=== PATIENT | male | born 1980 | race Hispanic/Latino ===

== ENCOUNTER 2017-04-10 18:57 | Emergency (ER) | payer MEDICAID, OTHER ==
[2017-04-10 19:03] VITALS: BP 132/94; PULSE 100; RESP 18; TEMP 98; O2SAT 99
[2017-04-10 19:57] LABS: EOS # 0.1 K/uL (0.0-0.7); EOS % 1.4 % (0.0-4.0); LYMPH # 1.6 K/uL (1.0-4.3); MONO # 0.8 K/uL (0.0-0.8); MONO % 10.3 % (0.0-10.0); RED CELL DISTRIBUTION WIDTH 13.6 % (11.5-14.5)
[2017-04-10 20:01] LABS: ALB/GLOB RATIO 1.3 (1.0-2.1); ALCOHOL SERUM 97 mg/dl (0-10); ALKALINE PHOSPHATASE 76 U/L (38-126); ALT/SGPT 105 U/L (21-72); AST/SGOT 70 U/L (17-59); BLOOD UREA NITROGEN 9 mg/dl (9-20); CALCIUM 10.3 mg/dL (8.4-10.2); CARBON DIOXIDE 23 mmol/L (22-30); CHLORIDE 109 mmol/L (98-107); GFR AFRICAN-AMERICAN > 60; GLUCOSE,RANDOM 104 mg/dL (75-110); POTASSIUM 3.7 MMOL/L (3.6-5.0); SODIUM 146 mmol/l (132-148); TOTAL PROTEIN 7.5 G/DL (6.3-8.2)
[2017-04-10 20:04] LABS: BASO % 0.6 % (0.0-2.0); HEMATOCRIT 40.9 % (35.0-51.0); LYMPH % 20.3 % (20.0-40.0); MEAN CELL VOLUME 91.2 fl (80.0-94.0); MEAN CORPUSCULAR HEMOGLOBIN 30.4 pg (27.0-31.0); MEAN CORPUSCULAR HGB CONC 33.3 g/dL (33.0-37.0); MEAN PLATELET VOLUME 6.9 fl (7.2-11.7); NEUT # 5.2 K/uL (1.8-7.0); NEUT % 67.4 % (50.0-75.0); NRBC % 0.1 % (0.0-0.0); WHITE BLOOD COUNT 7.8 K/uL (4.8-10.8)
--- NOTE | 2017-04-10 21:42 | ED PDOC ---
HPI: Psych/Substance Abuse Time Seen by Provider: 04/10/17 19:16 Chief Complaint (Nursing): Psychiatric Evaluation Chief Complaint (Provider): Psychiatric Evaluation History Per: Patient History/Exam Limitations: no limitations Onset/Duration Of Symptoms: Days (x4) Current Symptoms Are (Timing): Still Present Additional Complaint(s): Kimo Mayberry is a 36 year old male with previous medical history of substance abuse, who presents to the emergency department requesting detox or psychiatric treatment for his anxiety status post signing himself out of detox program 4 days ago. Denied auditory hallucination, homicidal or suicidal ideation. Patient stated he abused alcohol and Xanax pills earlier prior to arrival. PMD: none provided Past Medical History Reviewed: Historical Data, Nursing Documentation, Vital Signs Vital Signs: Last Vital Signs Temp 98.0 F 04/10/17 18:59 Pulse 100 H 04/10/17 18:59 Resp 18 04/10/17 18:59 BP 132/94 H 04/10/17 18:59 Pulse Ox 99 04/10/17 18:59 - Surgical History Surgical History: No Surg Hx - Family History Family History: States: Unknown Family Hx - Social History Current smoker - smoking cessation education provided: Yes Alcohol: > 2 Drinks/Day Drugs: Cocaine, Prescription medications (xanax), Other (PCP) - Immunization History Hx Tetanus Toxoid Vaccination: Yes Hx Influenza Vaccination: No Hx Pneumococcal Vaccination: No - Home Medications Home Medications: Ambulatory Orders Medication Instructions Recorded No Known Home Med 10/02/16 - Allergies Allergies/Adverse Reactions: Allergies Allergy/AdvReac Type Severity Reaction Status Date / Time No Known Allergies Allergy Verified 10/02/16 23:41 Review of Systems ROS Statement: Except As Marked, All Systems Reviewed And Found Negative Psych: Negative for: Suicidal ideation (homicidal ideation), Other (auditory hallucinations) Physical Exam - Reviewed Nursing Documentation Reviewed: Yes Vital Signs Reviewed: Yes - Physical Exam Appears: Positive for: Well (but poorly groomed), Non-toxic, No Acute Distress Head Exam: Positive for: ATRAUMATIC, NORMAL INSPECTION, NORMOCEPHALIC Cardiovascular/Chest: Positive for: Regular Rate, Rhythm. Negative for: Chest Non Tender Respiratory: Positive for: Normal Breath Sounds. Negative for: Respiratory Distress Gastrointestinal/Abdominal: Positive for: Normal Exam, Bowel Sounds, Soft. 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 Provider Scribe Attestation: All medical record entries made by the Scribe were at my direction and personally dictated by me. I have reviewed the chart and agree that the record accurately reflects my personal performance of the history, physical exam, medical decision making, and the department course for this patient. I have also personally directed, reviewed, and agree with the discharge instructions and disposition. Disposition - Clinical Impression Clinical Impression: Substance abuse - Disposition Disposition: Routine/Home Disposition Time: 20:30 Condition: STABLE Instructions: Polysubstance Abuse (ED) Forms: [employer] (Cuban)
== END 2017-04-10 21:30 | disposition home or self-care (01) ==
LOC: H.ER 18:57
DX: F19.10 Other psychoactive substance abuse, uncomplicated (principal); F41.9 Anxiety disorder, unspecified
CPT/HCPCS: 80053; 85025; 99281; G0480

== ENCOUNTER 2017-04-11 12:43 | Observation (INO) | payer MEDICAID, OTHER ==
--- NOTE | 2017-04-11 13:50 | ED PDOC ---
HPI: Psych/Substance Abuse Time Seen by Provider: 04/11/17 13:03 Chief Complaint (Nursing): Psychiatric Evaluation Chief Complaint (Provider): Psychiatric Evaluation History Per: Patient History/Exam Limitations: no limitations Onset/Duration Of Symptoms: Hrs Current Symptoms Are (Timing): Still Present Additional Complaint(s): 36 y/o male presents to the emergency department via ambulance for crisis evaluation after patient was found with possible intoxication in the streets and admitted to suicidal thoughts prior to arrival. Admits to using heroin daily. Patient states he wants to jump off a bridge because he is homeless. Reports he is hungry. Denies any further medical complaints. Past Medical History Reviewed: Historical Data, Nursing Documentation, Vital Signs Vital Signs: Last Vital Signs Temp 96.6 F L 04/11/17 12:52 Pulse 65 04/11/17 12:52 Resp 20 04/11/17 12:52 BP 130/92 H 04/11/17 12:52 Pulse Ox 100 04/11/17 12:52 - Medical History PMH: Denies: Diabetes, Hepatitis, HIV, HTN, Seizures, Sexually Transmitted Disease - Family History Family History: States: Unknown Family Hx - Social History Current smoker - smoking cessation education provided: Yes (Heavy Smoker > 10 Cigarettes Daily) Alcohol: Social Drugs: Other - Immunization History Hx Tetanus Toxoid Vaccination: Yes Hx Influenza Vaccination: No Hx Pneumococcal Vaccination: No - Home Medications Home Medications: Ambulatory Orders Medication Instructions Recorded No Known Home Med 10/02/16 - Allergies Allergies/Adverse Reactions: Allergies Allergy/AdvReac Type Severity Reaction Status Date / Time No Known Allergies Allergy Verified 10/02/16 23:41 Review of Systems ROS Statement: Except As Marked, All Systems Reviewed And Found Negative Constitutional: Positive for: Other (HUngry) Psych: Positive for: Suicidal ideation Physical Exam - Reviewed Nursing Documentation Reviewed: Yes Vital Signs Reviewed: Yes - Physical Exam Appears: Positive for: Non-toxic, No Acute Distress (Disheveled) Head Exam: Positive for: ATRAUMATIC, NORMAL INSPECTION, NORMOCEPHALIC Skin: Positive for: Normal Color, Warm, Dry ENT: Positive for: Normal ENT Inspection Neck: Positive for: Normal, Supple Cardiovascular/Chest: Positive for: Regular Rate, Rhythm. Negative for: Murmur Respiratory: Positive for: Normal Breath Sounds. Negative for: Accessory Muscle Use, Wheezing, Respiratory Distress Gastrointestinal/Abdominal: Positive for: Normal Exam, Soft. Negative for: Tenderness Extremity: Positive for: Normal ROM. Negative for: Pedal Edema Neurologic/Psych: Positive for: Alert, Oriented (x3), Mood/Affect (Calm and cooperative) - Laboratory Results Result Diagrams: 04/11/17 14:02 04/11/17 14:02 - ECG O2 Sat by Pulse Oximetry: 100 (RA) Pulse Ox Interpretation: Normal Medical Decision Making Medical Decision Making: Time: 13:35 Initial impression: Depression. Needs medical clearance and crisis evaluation Initial plan: --Alcohol Serum --CMP --Drug Screen, Urine --Crisis Evaluation As Ordered --Urine DIP --CBC w/ diff --Reevaluation Time: 14:46 --1:1 ED Obs for Suicidal Precaution Scribe Attestation: Documented by Soraida Christie, acting as a scribe for Jerzy Cox MD. Provider Scribe Attestation: All medical record entries made by the Scribe were at my direction and personally dictated by me. I have reviewed the chart and agree that the record accurately reflects my personal performance of the history, physical exam, medical decision making, and the department course for this patient. I have also personally directed, reviewed, and agree with the discharge instructions and disposition. Disposition - Clinical Impression Clinical Impression: Polysubstance abuse - Patient ED Disposition Is Patient to be Admitted: Transfer of Care Counseled Patient/Family Regarding: Studies Performed, Diagnosis - Disposition Disposition: Transfer of Care Disposition Time: 15:00 Condition: FAIR Patient Signed Over To: Leanne Davis
[2017-04-11 14:06] LABS: BASO # 0.1 K/uL (0.0-0.2); BASO % 0.9 % (0.0-2.0); EOS # 0.1 K/uL (0.0-0.7); EOS % 1.9 % (0.0-4.0); LYMPH # 1.9 K/uL (1.0-4.3); LYMPH % 30.9 % (20.0-40.0); MEAN CELL VOLUME 91.6 fl (80.0-94.0); MEAN CORPUSCULAR HEMOGLOBIN 30.5 pg (27.0-31.0); MEAN CORPUSCULAR HGB CONC 33.3 g/dL (33.0-37.0); MONO # 0.5 K/uL (0.0-0.8); MONO % 8.6 % (0.0-10.0); NEUT # 3.5 K/uL (1.8-7.0); NEUT % 57.7 % (50.0-75.0); NRBC % 0.2 % (0.0-0.0); RED CELL DISTRIBUTION WIDTH 13.8 % (11.5-14.5); WHITE BLOOD COUNT 6.1 K/uL (4.8-10.8)
[2017-04-11 14:24] LABS: ALB/GLOB RATIO 1.2 (1.0-2.1); ALCOHOL SERUM 224 mg/dl (0-10); ALKALINE PHOSPHATASE 89 U/L (38-126); ALT/SGPT 124 U/L (21-72); AST/SGOT 92 U/L (17-59); BILIRUBIN,TOTAL 0.7 mg/dl (0.2-1.3); BLOOD UREA NITROGEN 9 mg/dl (9-20); CALCIUM 9.9 mg/dL (8.4-10.2); CARBON DIOXIDE 29 mmol/L (22-30); CHLORIDE 110 mmol/L (98-107); GFR AFRICAN-AMERICAN > 60; GLUCOSE,RANDOM 90 mg/dL (75-110); SODIUM 151 mmol/l (132-148); TOTAL PROTEIN 8.4 G/DL (6.3-8.2)
--- NOTE | 2017-04-11 15:19 | ED PDOC ---
- Laboratory Results Result Diagrams: 04/11/17 14:02 04/11/17 14:02 - ECG O2 Sat by Pulse Oximetry: 100 (RA) Medical Decision Making Medical Decision Making: Time: 15:00 --Patient endorsed from Dr. Cox to me. --On ED Observation for ETOH intoxication and suicidal ideation. Any further documentation will be included within ED Obs section of chart. Scribe Attestation: Documented by Soraida Christie, acting as a scribe for Leanne Davis MD. Provider Scribe Attestation: All medical record entries made by the Scribe were at my direction and personally dictated by me. I have reviewed the chart and agree that the record accurately reflects my personal performance of the history, physical exam, medical decision making, and the department course for this patient. I have also personally directed, reviewed, and agree with the discharge instructions and disposition. Disposition - Clinical Impression Clinical Impression: Polysubstance abuse - POA Present On Arrival: None - Disposition Disposition: Routine/Home Disposition Time: 15:00 Condition: IMPROVED ED OBSERVATION Discharge: Yes Date of observation admission: 04/11/17 Time of observation admission: 15:00 - Observation admission statement Patient is being placed in observation because:: ETOH intoxication and suicidal ideation. - Goals of Observation Goals of observation are:: Crisis evaluation and clinical sobriety. - Progress Note Progress Note: 18:00 Evaluated by Crisis. STable for discharge. Resources for polysubstance abuse and followup provided by deck worker.
[2017-04-11 17:34] VITALS: BP 128/87; PULSE 88; RESP 19; TEMP 98.2
[2017-04-11 20:19] VITALS: O2SAT 100
== END 2017-04-11 19:00 | disposition home or self-care (01) ==
LOC: H.ER 12:43 → H.EROBSV 15:00
PROVIDERS: ADMIT Emergency Medicine; ATTEND Emergency Medicine
DX: F19.10 Other psychoactive substance abuse, uncomplicated (principal); F17.210 Nicotine dependence, cigarettes, uncomplicated; Z59.0 Homelessness; Z86.59 Personal history of other mental and behavioral disorders
CPT/HCPCS: 80053; 82948; 85025; 99285; G0378; G0480

== ENCOUNTER 2017-07-20 16:36 | Emergency (ER) | payer MEDICAID, OTHER ==
[2017-07-20 16:44] VITALS: RESP 18
--- NOTE | 2017-07-20 18:03 | ED PDOC ---
HPI: Psych/Substance Abuse Time Seen by Provider: 07/20/17 16:48 Chief Complaint (Nursing): Substance Abuse History Per: Patient Additional Complaint(s): Pt. brought in by EMS for intoxication. Pt. admits to using heroin. Offers no complaints at this time. Pt. is requesting to be discharged. Past Medical History Reviewed: Historical Data, Nursing Documentation, Vital Signs Vital Signs: Last Vital Signs Temp 98 F 07/20/17 16:42 Pulse 102 H 07/20/17 16:42 Resp 18 07/20/17 16:42 BP 108/73 07/20/17 16:42 Pulse Ox 96 07/20/17 16:42 - Medical History PMH: Denies: Diabetes, Hepatitis, HIV, HTN, Seizures, Sexually Transmitted Disease - Family History Family History: States: Unknown Family Hx - Immunization History Hx Tetanus Toxoid Vaccination: Yes Hx Influenza Vaccination: No Hx Pneumococcal Vaccination: No - Home Medications Home Medications: Ambulatory Orders Medication Instructions Recorded No Known Home Med 10/02/16 - Allergies Allergies/Adverse Reactions: Allergies Allergy/AdvReac Type Severity Reaction Status Date / Time No Known Allergies Allergy Verified 10/02/16 23:41 Review of Systems ROS Statement: Except As Marked, All Systems Reviewed And Found Negative Physical Exam - Reviewed Nursing Documentation Reviewed: Yes Vital Signs Reviewed: Yes - Physical Exam Appears: Positive for: Well, Non-toxic, No Acute Distress Head Exam: Positive for: ATRAUMATIC, NORMAL INSPECTION, NORMOCEPHALIC Skin: Positive for: Normal Color, Warm. Negative for: Rash Eye Exam: Positive for: EOMI, Normal appearance, PERRL ENT: Positive for: Normal ENT Inspection Neck: Positive for: Normal, Painless ROM Cardiovascular/Chest: Positive for: Regular Rate, Rhythm Respiratory: Positive for: CNT, Normal Breath Sounds Gastrointestinal/Abdominal: Positive for: Normal Exam, Bowel Sounds, Soft. Negative for: Tenderness Back: Positive for: Normal Inspection Extremity: Positive for: Normal ROM Neurologic/Psych: Positive for: Alert, Oriented, Gait (unsteady). Negative for : Aphasia, Facial Droop - ECG O2 Sat by Pulse Oximetry: 96 - Progress ED Course And Treament: 1934 Pt. AOx3. Gait steady unassisted. Pt. requesting to be dc'd. Disposition - Clinical Impression Clinical Impression: Substance abuse - Patient ED Disposition Is Patient to be Admitted: No - Disposition Referrals: [facility] [Outside] Disposition: Routine/Home Disposition Time: 19:36 Condition: IMPROVED Instructions: Narcotic Abuse (ED) Forms: [employer] (South African) Print Language: STATELESS
[2017-07-20 19:41] VITALS: BP 118/80; PULSE 96; TEMP 98.2; O2SAT 97
== END 2017-07-20 19:41 | disposition home or self-care (01) ==
LOC: H.ER 16:36
DX: F19.10 Other psychoactive substance abuse, uncomplicated (principal)